=== PATIENT | female | born 1965 | race African-American/Black ===

== ENCOUNTER 2016-08-20 09:20 | Inpatient (IN) | payer MEDICAID, OTHER ==
[~2016-08-20] VITALS: Ht 160 cm; Wt 108.9 kg
[~2016-08-20 09:20] MED LIST: ARIP30TA3 PO; BENZ2TAB7 PO; ESCI10TA PO; ESCI20TA PO; SUCR1ORA PO; TOPA200 PO
[2016-08-20] MEDS ORDERED: SODIUM CHLORIDE 0.9% 1,000 ML IV ONE (09:40)
[2016-08-20] MEDS ORDERED: MORPHINE SULFATE 4 MG/ML CPJ (NOT FOR IM USE) IV STA (09:40)
[2016-08-20] MEDS ORDERED: ONDANSETRON HCL 4MG/2ML VIAL IV STA (09:40)
[2016-08-20] MEDS ORDERED: HYDRALAZINE 20MG/ML VIAL IV ONE (09:45)
[2016-08-20 10:00] LABS: BASOPHILS % 1.2 % (0.0-2.0); EOSINOPHILS % 1.1 % (0.0-5.0); HEMATOCRIT. 40.1 % (36.0-48.0); HEMOGLOBIN. 13.5 g/dL (12.0-16.0); LYMPHOCYTES % 34.5 % (20.0-50.0); MEAN CORPUSCULAR HEMOGLOBIN 28.9 pg (28.0-32.0); MEAN CORPUSCULAR VOLUME 85.6 fL (81.0-99.0); MEAN PLATELET VOLUME 10.7 fl (7.4-10.4); MONOCYTES % 4.6 % (2.0-8.0); NEUTROPHILS % 58.6 % (40.0-76.0); PLATELET 234 x1000/uL (130-400); RED BLOOD CELL COUNT 4.68 mill/uL (4.2-5.4); RED CELL DISTRIBUTION WIDTH 15.3 % (11.6-14.6)
[2016-08-20 10:16] LABS: CARBON DIOXIDE 25 mEq/L (21-32); CHLORIDE 113 mEq/L (98-107); TROPONIN I < 0.02 ng/mL (0.00-0.04)
[2016-08-20] MEDS ORDERED: ASPIRIN 325MG EC TABLET PO ONE (10:30)
[2016-08-20] MEDS ORDERED: ACETAMINOPHEN 650MG/20.3ML UDC GT PRN (11:30)
[2016-08-20] MEDS ORDERED: DOCUSATE SODIUM 100MG CAPSULE PO PRN (11:30)
[2016-08-20] MEDS ORDERED: NA PHOS,M-B/NA PHOS,DI-BA ENEMA 118ML PR PRN (11:30)
[2016-08-20] MEDS ORDERED: DIPHENHYDRAMINE 50MG/ML VIAL IV PRN (11:30)
[2016-08-20] MEDS ORDERED: HYDROCODONE/ACETAMINOPHEN 5/325MG TABLET PO PRN (11:30)
[2016-08-20] MEDS ORDERED: ONDANSETRON HCL 4MG/2ML VIAL IV PRN (11:30)
[2016-08-20] MEDS ORDERED: GUAIFENESIN 200MG/10ML SUGAR FREE UDC PO PRN (11:30)
[2016-08-20] MEDS ORDERED: CLONIDINE 0.1MG TABLET PO PRN (11:30)
[2016-08-20] MEDS ORDERED: MAGNESIUM/ALUMINUM HYDROXIDE/SIMETHICONE 30ML UDC PO PRN (11:30)
[2016-08-20] MEDS ORDERED: ACETAMINOPHEN 650MG SUPP PR PRN (11:30)
[2016-08-20] MEDS ORDERED: IPRATROPIUM/ALBUTEROL 0.5-3(2.5)MG/3ML NEB INH PRN (11:30)
[2016-08-20 11:53] LABS: CLARITY URINE CLEAR (CLEAR); COLOR URINE YELLOW (YELLOW); GLUCOSE URINE NEGATIVE (NEGATIVE); KETONES URINE NEGATIVE (NEGATIVE); LEUKOCYTE ESTERASE URINE NEGATIVE (NEGATIVE); NITRITE URINE NEGATIVE (NEGATIVE); OCCULT BLOOD URINE 1+ (NEGATIVE); PROTEIN URINE NEGATIVE (NEGATIVE); SPECIFIC GRAVITY URINE 1.013 (1.005-1.030); UROBILINOGEN URINE 0.2 E.U./dL (0.2-1.0)
[2016-08-20 12:39] LABS: *AMPHETAMINES SCREEN URINE NEGATIVE (NEGATIVE); *BARBITURATES SCREEN URINE NEGATIVE (NEGATIVE); *BENZODIAZEPINES SCREEN URINE NEGATIVE (NEGATIVE); *COCAINE SCREEN URINE PRESUMTIVE POSITIVE (NEGATIVE); CANNABINOID URINE SCREEN NEGATIVE (NEGATIVE); METHADONE URINE SCREEN NEGATIVE (NEGATIVE); OPIATES URINE SCREEN NEGATIVE (NEGATIVE); PHENCYCLIDINE URINE SCREEN NEGATIVE (NEGATIVE)
[2016-08-20 12:55] VITALS: BP 141/67
[2016-08-20 16:02] LABS: CREATINE KINASE 215 IU/L (26-192); TROPONIN I < 0.02 ng/mL (0.00-0.04)
[2016-08-20 17:24] VITALS: BP 126/61
[2016-08-20] MEDS: SODIUM CHLORIDE 0.9% INJ 3ML FLUSH IVF SCH ×2 (17:48→21:14)
[2016-08-20] MEDS: ACETAMINOPHEN 325MG TABLET PO PRN (17:49)
[2016-08-20 20:00] VITALS: BP 118/58
[2016-08-20 23:13] LABS: CREATINE KINASE 204 IU/L (26-192); TROPONIN I < 0.02 ng/mL (0.00-0.04)
[2016-08-21] VITALS: BP 119/58
[2016-08-21 04:00] VITALS: BP 115/64
[2016-08-21] MEDS: SODIUM CHLORIDE 0.9% INJ 3ML FLUSH IVF SCH ×3 (06:19→22:35)
[2016-08-21 06:53] LABS: BASOPHILS % 0.5 % (0.0-2.0); EOSINOPHILS % 1.9 % (0.0-5.0); HEMATOCRIT. 39.3 % (36.0-48.0); HEMOGLOBIN. 13.1 g/dL (12.0-16.0); LYMPHOCYTES % 46.3 % (20.0-50.0); MEAN CORPUSCULAR HEMOGLOBIN 28.9 pg (28.0-32.0); MEAN CORPUSCULAR VOLUME 86.5 fL (81.0-99.0); MEAN PLATELET VOLUME 11.2 fl (7.4-10.4); NEUTROPHILS % 46.3 % (40.0-76.0); PLATELET 222 x1000/uL (130-400); RED BLOOD CELL COUNT 4.54 mill/uL (4.2-5.4); RED CELL DISTRIBUTION WIDTH 14.8 % (11.6-14.6)
[2016-08-21 08:00] VITALS: BP 140/78
[2016-08-21] MEDS: ACETAMINOPHEN 325MG TABLET PO PRN ×2 (08:51→19:29)
[2016-08-21] MEDS ORDERED: ESCI20TA36 PO (11:43)
[2016-08-21] MEDS ORDERED: NON FORMULARY PATIENT HOME MED EA XX SCH (11:45)
[2016-08-21] MEDS ORDERED: MEDICATION NOT ON FORMULARY EA (Escitalopram Oxalate 1 TAB) PO SCH (11:45)
[2016-08-21 12:00] VITALS: BP 119/65
[2016-08-21] MEDS: ASPIRIN 81MG TABLET PO SCH (13:10)
[2016-08-21] MEDS: AMLODIPINE 10MG TABLET PO SCH (13:11)
[2016-08-21] MEDS: CITALOPRAM HYDROBROMIDE 40MG TABLET PO SCH (13:11)
[2016-08-21 16:00] VITALS: BP 143/68
[2016-08-21 16:29] LABS: CREATINE KINASE 173 IU/L (26-192); CREATINE KINASE MB FRACTION 1.1 ng/mL (0.5-3.6); TROPONIN I < 0.02 ng/mL (0.00-0.04)
[2016-08-21 16:36] LABS: T4 FREE 0.91 ng/dL (0.76-1.46)
[2016-08-21 20:42] VITALS: BP 150/69
[2016-08-21 23:20] LABS: CREATINE KINASE 170 IU/L (26-192); CREATINE KINASE MB FRACTION 1.9 ng/mL (0.5-3.6); TROPONIN I < 0.02 ng/mL (0.00-0.04)
[2016-08-22 00:29] VITALS: BP 137/79
[2016-08-22 04:00] VITALS: BP 132/69
[2016-08-22] MEDS: SODIUM CHLORIDE 0.9% INJ 3ML FLUSH IVF SCH (05:41)
[2016-08-22 06:11] LABS: CREATINE KINASE 156 IU/L (26-192); CREATINE KINASE MB FRACTION 1.3 ng/mL (0.5-3.6); TROPONIN I < 0.02 ng/mL (0.00-0.04)
[2016-08-22 08:00] VITALS: BP_SYST 115; BP_SYST 133; BP_DIAS 47; BP_DIAS 82
[2016-08-22] MEDS: CITALOPRAM HYDROBROMIDE 40MG TABLET PO SCH (08:18)
[2016-08-22] MEDS: AMLODIPINE 10MG TABLET PO SCH (08:18)
[2016-08-22] MEDS: ASPIRIN 81MG TABLET PO SCH (08:18)
[2016-08-22 10:23] VITALS: BP 115/47
[2016-08-22 12:00] VITALS: BP 110/51
== END 2016-08-22 12:10 | disposition home or self-care (01) | DRG 47 ==
LOC: ER 09:53 → 5WST 11:02
PROVIDERS: ADMIT Family Medicine; ATTEND Family Medicine
DX: G45.9 Transient cerebral ischemic attack, unspecified (principal); Z68.41 Body mass index [BMI] 40.0-44.9, adult; I11.9 Hypertensive heart disease without heart failure; E66.9 Obesity, unspecified; F14.90 Cocaine use, unspecified, uncomplicated; F31.9 Bipolar disorder, unspecified; J45.909 Unspecified asthma, uncomplicated; K21.9 Gastro-esophageal reflux disease without esophagitis; G93.2 Benign intracranial hypertension; Z98.2 Presence of cerebrospinal fluid drainage device; Z88.0 Allergy status to penicillin
CPT/HCPCS: 36415; 70450; 70551; 71010; 72125; 80053; 80061; 80305; 81001; 82550; 82553; 82962; 83036; 83880; 84439; 84443; 84484; 85025; 85379; 93005; 93306; 96374; 96375; 99285; J0360; J2270; J2405; J7030

== ENCOUNTER 2016-10-06 09:26 | Emergency (ER) | payer OTHER ==
[~2016-10-06] VITALS: Ht 160 cm; Wt 106.0 kg
[~2016-10-06 09:26] MED LIST changes: +ARIP30TA2 PO; -ARIP30TA3 PO; -ESCI10TA PO; +ESCI20TA36 PO
[2016-10-06] MEDS ORDERED: ONDANSETRON HCL 4MG/2ML VIAL IV STA ×2 (10:17→12:52)
[2016-10-06] MEDS ORDERED: MORPHINE SULFATE 4 MG/ML CPJ (NOT FOR IM USE) IV STA ×2 (10:17→12:52)
[2016-10-06] MEDS ORDERED: SODIUM CHLORIDE 0.9% 1,000 ML IV ONE (10:17)
[2016-10-06 10:37] LABS: EOSINOPHILS % 0.6 % (0.0-5.0); HEMATOCRIT. 41.7 % (36.0-48.0); HEMOGLOBIN. 14.3 g/dL (12.0-16.0); LYMPHOCYTES % 38.9 % (20.0-50.0); MEAN CORPUSCULAR HEMOGLOBIN 30.1 pg (28.0-32.0); MEAN CORPUSCULAR VOLUME 87.6 fL (81.0-99.0); MEAN PLATELET VOLUME 10.4 fl (7.4-10.4); MONOCYTES % 5.2 % (2.0-8.0); NEUTROPHILS % 54.3 % (40.0-76.0); PLATELET 204 x1000/uL (130-400); RED BLOOD CELL COUNT 4.77 mill/uL (4.2-5.4); RED CELL DISTRIBUTION WIDTH 14.8 % (11.6-14.6)
[2016-10-06 10:44] LABS: CHLORIDE 108 mEq/L (98-107)
[2016-10-06 10:53] LABS: CARBON DIOXIDE 25 mEq/L (21-32)
[2016-10-06 11:27] LABS: CLARITY URINE CLEAR (CLEAR); COLOR URINE YELLOW (YELLOW); GLUCOSE URINE NEGATIVE (NEGATIVE); KETONES URINE NEGATIVE (NEGATIVE); LEUKOCYTE ESTERASE URINE NEGATIVE (NEGATIVE); NITRITE URINE NEGATIVE (NEGATIVE); OCCULT BLOOD URINE 2+ (NEGATIVE); PH URINE 6.5 (4.5-8.0); PROTEIN URINE NEGATIVE (NEGATIVE); SPECIFIC GRAVITY URINE 1.013 (1.005-1.030); UROBILINOGEN URINE 0.2 E.U./dL (0.2-1.0)
[2016-10-06 13:10] VITALS: BP 190/79
== END 2016-10-06 14:00 | disposition home or self-care (01) ==
LOC: ER 09:27
DX: A08.4 Viral intestinal infection, unspecified (principal); J45.909 Unspecified asthma, uncomplicated; F12.10 Cannabis abuse, uncomplicated; Z72.0 Tobacco use; Z88.0 Allergy status to penicillin
CPT/HCPCS: 36415; 80053; 81001; 83690; 85025; 96361; 96374; 96375; 96376; 99284; J2270; J2405; J7030; Z7610

== ENCOUNTER 2017-03-23 19:17 | Emergency (ER) | payer BC, MEDICAID ==
[~2017-03-23] VITALS: Ht 160 cm; Wt 97.0 kg
[2017-03-23 20:12] VITALS: BP 129/67
== END 2017-03-23 20:18 | disposition left against medical advice (07) ==
LOC: ER 19:17
DX: R10.9 Unspecified abdominal pain (principal); Z53.21 Procedure and treatment not carried out due to patient leaving prior to being seen by health care provider

== ENCOUNTER 2017-10-28 10:07 | Emergency (ER) | payer BC, MEDICAID ==
[~2017-10-28] VITALS: Ht 160 cm; Wt 95.0 kg
[2017-10-28] MEDS ORDERED: ACETAMINOPHEN 500MG TABLET PO ONE (13:15)
[2017-10-28] MEDS ORDERED: IBUPROFEN 400MG TABLET PO ONE (13:15)
[2017-10-28 15:00] VITALS: BP 145/75
[2017-10-28] MEDS ORDERED: METRONIDAZOLE 500MG TABLET PO ONE (15:00)
== END 2017-10-28 15:59 | disposition home or self-care (01) ==
LOC: ER 10:07
DX: S89.81XA Other specified injuries of right lower leg, initial encounter (principal); S49.81XA Other specified injuries of right shoulder and upper arm, initial encounter; Y93.01 Activity, walking, marching and hiking; W17.89XA Other fall from one level to another, initial encounter; Y92.480 Sidewalk as the place of occurrence of the external cause; M17.11 Unilateral primary osteoarthritis, right knee
CPT/HCPCS: 73030; 73562; 99284

== ENCOUNTER 2018-04-20 15:10 | Inpatient (IN) | payer MEDICAID ==
[~2018-04-20] VITALS: Ht 160 cm; Wt 99.8 kg
[2018-04-20] MEDS ORDERED: ALBUTEROL (0.083%) 2.5MG/3ML NEB HHN STA (16:16)
[2018-04-20] MEDS ORDERED: IPRATROPIUM BROMIDE (0.02%) 0.5MG/2.5ML NEB HHN STA (16:16)
[2018-04-20] MEDS ORDERED: ASPIRIN 325MG EC TABLET PO ONE (16:30)
[2018-04-20 17:19] LABS: CHLORIDE 109 mEq/L (98-107)
[2018-04-20 17:49] LABS: BASOPHILS % 1.2 % (0.0-2.0); EOSINOPHILS % 1.1 % (0.0-5.0); HEMATOCRIT. 42.2 % (36.0-48.0); HEMOGLOBIN. 14.1 g/dL (12.0-16.0); LYMPHOCYTES % 30.4 % (20.0-50.0); MEAN CORPUSCULAR HEMOGLOBIN 29.7 pg (28.0-32.0); MEAN CORPUSCULAR VOLUME 89.1 fL (81.0-99.0); MEAN PLATELET VOLUME 10.6 fl (7.4-10.4); MONOCYTES % 6.8 % (2.0-8.0); NEUTROPHILS % 60.5 % (40.0-76.0); PLATELET 241 x1000/uL (130-400); RED BLOOD CELL COUNT 4.74 mill/uL (4.2-5.4); RED CELL DISTRIBUTION WIDTH 14.2 % (11.6-14.6)
[2018-04-20] MEDS ORDERED: DOCUSATE SODIUM 100MG CAPSULE PO PRN (19:30)
[2018-04-20] MEDS ORDERED: ONDANSETRON HCL 4MG/2ML INJ IV PRN (19:30)
[2018-04-20] MEDS ORDERED: ACETAMINOPHEN 325MG TABLET PO PRN (19:30)
[2018-04-20] MEDS: LORAZEPAM 0.5MG TABLET PO PRN (19:56)
[2018-04-20] MEDS: CLONIDINE 0.1MG TABLET PO PRN (19:56)
[2018-04-20 20:06] LABS: CREATINE KINASE MB FRACTION < 1.0 ng/mL (0.5-3.6)
[2018-04-20 20:33] LABS: CREATINE KINASE 199 IU/L (26-192)
[2018-04-20] MEDS: IPRATROPIUM/ALBUTEROL 0.5-3(2.5)MG/3ML NEB INH PRN (20:41)
[2018-04-20] MEDS ORDERED: IOHEXOL-350 100 ML BOTTLE ONE (20:41)
[2018-04-20] MEDS: BENZONATATE 100MG CAPSULE PO PRN (21:41)
[2018-04-21] VITALS (8 sets, daily range): BP systolic 128–158; BP diastolic 59–81
[2018-04-21] MEDS: HYDROCODONE/ACETAMINOPHEN 5/325MG TABLET PO PRN ×4 (01:07→22:33)
[2018-04-21] MEDS: IPRATROPIUM/ALBUTEROL 0.5-3(2.5)MG/3ML NEB INH PRN ×5 (02:00→20:52)
[2018-04-21] MEDS: LORAZEPAM 0.5MG TABLET PO PRN ×2 (05:35→10:36)
[2018-04-21] MEDS: BENZONATATE 100MG CAPSULE PO PRN (06:17)
[2018-04-21 06:55] LABS: BASOPHILS % 0.9 % (0.0-2.0); EOSINOPHILS % 1.1 % (0.0-5.0); LYMPHOCYTES % 38.4 % (20.0-50.0); MEAN CORPUSCULAR HEMOGLOBIN 29.5 pg (28.0-32.0); MEAN CORPUSCULAR VOLUME 88.8 fL (81.0-99.0); MEAN PLATELET VOLUME 11.3 fl (7.4-10.4); MONOCYTES % 13.5 % (2.0-8.0); NEUTROPHILS % 46.1 % (40.0-76.0); PLATELET 212 x1000/uL (130-400); RED BLOOD CELL COUNT 4.39 mill/uL (4.2-5.4); RED CELL DISTRIBUTION WIDTH 14.5 % (11.6-14.6)
[2018-04-21 07:15] LABS: CHLORIDE 110 mEq/L (98-107)
[2018-04-21 07:23] LABS: LDL CHOLESTEROL 83 mg/dL (5-100)
[2018-04-21 07:29] LABS: HDL CHOLESTEROL 56 mg/dL (40-59)
[2018-04-21] MEDS: ASPIRIN 81MG EC TABLET PO SCH (10:00)
[2018-04-21] MEDS: GUAIFENESIN-DM 200MG-20MG/10ML UDC PO PRN ×3 (12:25→22:33)
[2018-04-21] MEDS: METHYLPREDNISOLONE SOD SUCC 125 MG/2 ML VIAL IV SCH ×2 (15:54→21:11)
[2018-04-21] MEDS ORDERED: LEVOFLOXACIN 750MG PREMIX 150 ML IV SCH (16:30)
[2018-04-21] MEDS: MONTELUKAST SODIUM 10MG TABLET PO SCH (17:51)
[2018-04-21] MEDS: LEVOFLOXACIN 750MG PREMIX 150 ML IV SCH (17:51)
[2018-04-21] MEDS: FAMOTIDINE 20MG TABLET PO SCH (21:11)
[2018-04-21] MEDS: TOPIRAMATE 100MG TABLET PO SCH (21:12)
[2018-04-21] MEDS: BENZTROPINE MESYLATE 1MG TABLET PO SCH (21:12)
[2018-04-21] MEDS ORDERED: POTASSIUM CHLORIDE 20MEQ TABLET SR PO NR (23:00)
[2018-04-22] VITALS: BP 151/71
[2018-04-22 04:00] VITALS: BP 152/78
[2018-04-22] MEDS: METHYLPREDNISOLONE SOD SUCC 125 MG/2 ML VIAL IV SCH (06:26)
[2018-04-22 07:11] LABS: BASOPHILS % 0.2 % (0.0-2.0); CHLORIDE 110 mEq/L (98-107); HEMATOCRIT. 42.8 % (36.0-48.0); HEMOGLOBIN. 14.1 g/dL (12.0-16.0); LYMPHOCYTES % 14.5 % (20.0-50.0); MEAN CORPUSCULAR HEMOGLOBIN 29.5 pg (28.0-32.0); MEAN CORPUSCULAR VOLUME 89.3 fL (81.0-99.0); MONOCYTES % 1.4 % (2.0-8.0); NEUTROPHILS % 83.9 % (40.0-76.0); PLATELET 244 x1000/uL (130-400)
[2018-04-22] MEDS: IPRATROPIUM/ALBUTEROL 0.5-3(2.5)MG/3ML NEB INH PRN ×2 (07:57→13:17)
[2018-04-22 08:00] VITALS: BP 141/57
[2018-04-22] MEDS ORDERED: MEDICATION NOT ON FORMULARY EA (Escitalopram Oxalate 1 TAB) PO SCH (09:00)
[2018-04-22] MEDS: CITALOPRAM HYDROBROMIDE 20MG TABLET PO SCH (09:12)
[2018-04-22] MEDS: ARIPIPRAZOLE 10MG TABLET PO SCH (09:12)
[2018-04-22] MEDS: FAMOTIDINE 20MG TABLET PO SCH ×2 (09:13→21:24)
[2018-04-22] MEDS: TOPIRAMATE 100MG TABLET PO SCH ×2 (09:13→21:24)
[2018-04-22] MEDS: LORATADINE 10MG TABLET PO SCH (09:13)
[2018-04-22] MEDS: ASPIRIN 81MG EC TABLET PO SCH (09:13)
[2018-04-22] MEDS: LORAZEPAM 0.5MG TABLET PO PRN (09:22)
[2018-04-22] MEDS: HYDROCODONE/ACETAMINOPHEN 5/325MG TABLET PO PRN ×2 (09:25→21:48)
[2018-04-22 11:50] VITALS: BP 158/74
[2018-04-22] MEDS ORDERED: BENZONATATE 100MG CAPSULE PO PRN (13:15)
[2018-04-22] MEDS: METHYLPREDNISOLONE SOD SUCC 40 MG/ML VIAL IV SCH ×2 (14:46→21:24)
[2018-04-22] MEDS: IPRATROPIUM/ALBUTEROL 0.5-3(2.5)MG/3ML NEB HHN SCH ×3 (15:28→23:55)
[2018-04-22 16:05] VITALS: BP 131/70
[2018-04-22] MEDS: MONTELUKAST SODIUM 10MG TABLET PO SCH (17:29)
[2018-04-22] MEDS: LEVOFLOXACIN 750MG PREMIX 150 ML IV SCH (17:30)
[2018-04-22 18:27] LABS: CLARITY URINE CLEAR (CLEAR); COLOR URINE YELLOW (YELLOW); KETONES URINE NEGATIVE (NEGATIVE); LEUKOCYTE ESTERASE URINE NEGATIVE (NEGATIVE); NITRITE URINE NEGATIVE (NEGATIVE); OCCULT BLOOD URINE 1+ (NEGATIVE); PROTEIN URINE TRACE (NEGATIVE); SPECIFIC GRAVITY URINE 1.015 (1.005-1.030); UROBILINOGEN URINE 0.2 E.U./dL (0.2-1.0)
[2018-04-22 18:35] LABS: *AMPHETAMINES SCREEN URINE NEGATIVE (NEGATIVE); *BARBITURATES SCREEN URINE NEGATIVE (NEGATIVE); *BENZODIAZEPINES SCREEN URINE NEGATIVE (NEGATIVE); *COCAINE SCREEN URINE NEGATIVE (NEGATIVE); CANNABINOID URINE SCREEN NEGATIVE (NEGATIVE); METHADONE URINE SCREEN NEGATIVE (NEGATIVE)
[2018-04-22 18:36] LABS: OPIATES URINE SCREEN PRESUMTIVE POSITIVE (NEGATIVE); PHENCYCLIDINE URINE SCREEN NEGATIVE (NEGATIVE)
[2018-04-22 20:00] VITALS: BP 178/73
[2018-04-22] MEDS: BENZTROPINE MESYLATE 1MG TABLET PO SCH (21:24)
[2018-04-22] MEDS: GUAIFENESIN/CODEINE 100-10MG/5ML UDC PO PRN (21:47)
[2018-04-22] MEDS: CLONIDINE 0.1MG TABLET PO PRN (21:47)
[2018-04-23] VITALS (7 sets, daily range): BP systolic 121–160; BP diastolic 60–85
[2018-04-23] MEDS: IPRATROPIUM/ALBUTEROL 0.5-3(2.5)MG/3ML NEB HHN SCH ×6 (03:50→23:56)
[2018-04-23] MEDS: METHYLPREDNISOLONE SOD SUCC 40 MG/ML VIAL IV SCH (05:32)
[2018-04-23] MEDS: TOPIRAMATE 100MG TABLET PO SCH ×2 (08:42→23:02)
[2018-04-23] MEDS: ARIPIPRAZOLE 10MG TABLET PO SCH (08:42)
[2018-04-23] MEDS: LORATADINE 10MG TABLET PO SCH (08:42)
[2018-04-23] MEDS: FAMOTIDINE 20MG TABLET PO SCH ×2 (08:42→23:02)
[2018-04-23] MEDS: ASPIRIN 81MG EC TABLET PO SCH (08:42)
[2018-04-23] MEDS: CITALOPRAM HYDROBROMIDE 20MG TABLET PO SCH (08:47)
[2018-04-23 09:18] LABS: BASOPHILS % 0.2 % (0.0-2.0); HEMATOCRIT. 40.4 % (36.0-48.0); HEMOGLOBIN. 13.4 g/dL (12.0-16.0); LYMPHOCYTES % 7.7 % (20.0-50.0); MEAN CORPUSCULAR HEMOGLOBIN 29.4 pg (28.0-32.0); MEAN CORPUSCULAR VOLUME 89.1 fL (81.0-99.0); MEAN PLATELET VOLUME 10.9 fl (7.4-10.4); MONOCYTES % 2.3 % (2.0-8.0); NEUTROPHILS % 89.8 % (40.0-76.0); PLATELET 256 x1000/uL (130-400); RED BLOOD CELL COUNT 4.54 mill/uL (4.2-5.4); RED CELL DISTRIBUTION WIDTH 14.5 % (11.6-14.6)
[2018-04-23 10:30] LABS: CHLORIDE 110 mEq/L (98-107)
[2018-04-23] MEDS: PREDNISONE 20MG TABLET PO SCH (16:04)
[2018-04-23] MEDS: MONTELUKAST SODIUM 10MG TABLET PO SCH (16:04)
[2018-04-23] MEDS: LEVOFLOXACIN 750MG PREMIX 150 ML IV SCH (16:04)
[2018-04-23] MEDS: BENZONATATE 100MG CAPSULE PO PRN (17:55)
[2018-04-23] MEDS: HYDROCODONE/ACETAMINOPHEN 5/325MG TABLET PO PRN (17:59)
[2018-04-23] MEDS: GUAIFENESIN/CODEINE 100-10MG/5ML UDC PO PRN (20:40)
[2018-04-23] MEDS: BENZTROPINE MESYLATE 1MG TABLET PO SCH (23:02)
[2018-04-24] MEDS: IPRATROPIUM/ALBUTEROL 0.5-3(2.5)MG/3ML NEB HHN SCH ×4 (03:52→15:17)
[2018-04-24 03:55] VITALS: BP 145/70
[2018-04-24 07:01] LABS: BASOPHILS % 0.5 % (0.0-2.0); HEMATOCRIT. 40.4 % (36.0-48.0); HEMOGLOBIN. 13.3 g/dL (12.0-16.0); LYMPHOCYTES % 13.4 % (20.0-50.0); MEAN CORPUSCULAR HEMOGLOBIN 29.5 pg (28.0-32.0); MEAN CORPUSCULAR VOLUME 89.3 fL (81.0-99.0); MEAN PLATELET VOLUME 11.2 fl (7.4-10.4); MONOCYTES % 4.4 % (2.0-8.0); NEUTROPHILS % 81.7 % (40.0-76.0); PLATELET 257 x1000/uL (130-400); RED BLOOD CELL COUNT 4.53 mill/uL (4.2-5.4); RED CELL DISTRIBUTION WIDTH 14.5 % (11.6-14.6)
[2018-04-24 08:00] VITALS: BP 175/78
[2018-04-24] MEDS: PREDNISONE 20MG TABLET PO SCH (08:11)
[2018-04-24] MEDS: TOPIRAMATE 100MG TABLET PO SCH (08:11)
[2018-04-24] MEDS: CITALOPRAM HYDROBROMIDE 20MG TABLET PO SCH (08:11)
[2018-04-24] MEDS: BENZONATATE 100MG CAPSULE PO PRN (08:11)
[2018-04-24] MEDS: LORATADINE 10MG TABLET PO SCH (08:12)
[2018-04-24] MEDS: ARIPIPRAZOLE 10MG TABLET PO SCH (08:12)
[2018-04-24] MEDS: FAMOTIDINE 20MG TABLET PO SCH (08:12)
[2018-04-24] MEDS: CLONIDINE 0.1MG TABLET PO PRN (08:12)
[2018-04-24] MEDS: ASPIRIN 81MG EC TABLET PO SCH (08:12)
[2018-04-24 09:00] VITALS: BP 156/69
[2018-04-24 12:00] VITALS: BP 138/64
[2018-04-24] MEDS: GUAIFENESIN/CODEINE 100-10MG/5ML UDC PO PRN (12:28)
[2018-04-24 12:34] LABS: CHLORIDE 111 mEq/L (98-107)
[2018-04-24] MEDS ORDERED: LEVO750T46 MT (15:43)
[2018-04-24] MEDS ORDERED: CLAR10 PO (15:43)
[2018-04-24] MEDS ORDERED: P50 MT (15:43)
[2018-04-24] MEDS ORDERED: FAMO20TA8 PO (15:43)
[2018-04-24] MEDS ORDERED: PRED10TA MT (15:43)
[2018-04-24] MEDS ORDERED: P20 MT ×2 (15:43)
[2018-04-24] MEDS ORDERED: MONT10TA21 PO (15:43)
[2018-04-24] MEDS ORDERED: ASPI-1158 PO (15:43)
[2018-04-24] MEDS ORDERED: TUSSL MT (15:43)
[2018-04-24] MEDS ORDERED: PROT40 MT (15:48)
[2018-04-24 16:00] VITALS: BP 146/82
[2018-04-24] MEDS ORDERED: GUAIFENESIN/CODEINE 100-10MG/5ML UDC PO PRN (17:15)
[2018-04-24 17:17] VITALS: BP 146/82
[2018-04-25] MEDS ORDERED: PREDNISONE 20MG TABLET PO SCH (09:00)
== END 2018-04-24 19:07 | disposition home or self-care (01) | DRG 139 ==
LOC: ER 15:10 → 6WST 18:08 → ENRESERV 21:44
PROVIDERS: ADMIT Internal Medicine; ATTEND Internal Medicine
DX: J18.9 Pneumonia, unspecified organism (principal); J96.00 Acute respiratory failure, unspecified whether with hypoxia or hypercapnia; J45.901 Unspecified asthma with (acute) exacerbation; I16.1 Hypertensive emergency; J20.9 Acute bronchitis, unspecified; F19.10 Other psychoactive substance abuse, uncomplicated; E66.9 Obesity, unspecified; G93.2 Benign intracranial hypertension; F31.9 Bipolar disorder, unspecified; I10 Essential (primary) hypertension; D72.821 Monocytosis (symptomatic); F14.90 Cocaine use, unspecified, uncomplicated; Z86.73 Personal history of transient ischemic attack (TIA), and cerebral infarction without residual deficits; Z87.891 Personal history of nicotine dependence; Z68.39 Body mass index [BMI] 39.0-39.9, adult; Z98.2 Presence of cerebrospinal fluid drainage device; Z82.49 Family history of ischemic heart disease and other diseases of the circulatory system; Z88.0 Allergy status to penicillin; Z79.899 Other long term (current) drug therapy; R07.9 Chest pain, unspecified
CPT/HCPCS: 36415; 71045; 71275; 80048; 80061; 80305; 82550; 82553; 82962; 83036; 83735; 83880; 84100; 84443; 84484; 85379; 87804; 93005; 94640; 99285; J1956; J2920; J2930; J7050; J7512; J7611; J7620; Q9967

== ENCOUNTER 2019-08-25 15:19 | Emergency (ER) | payer MEDICAID ==
[~2019-08-25] VITALS: Ht 160 cm; Wt 94.0 kg
[~2019-08-25 15:19] MED LIST changes: +ASPI-1158 PO; +CLAR10 PO; -ESCI20TA PO; -ESCI20TA36 PO; +ESCI20TA43 PO; +FAMO20TA8 PO; +LEVO750T46 MT; +MONT10TA21 PO; +P20 MT; +P50 MT; +PRED10TA MT; +PROT40 MT; +TUSSL MT
[2019-08-25] MEDS ORDERED: KETOROLAC 60MG/2ML VIAL IM ONE (17:00)
[2019-08-25 18:21] VITALS: BP 190/93
== END 2019-08-25 18:23 | disposition home or self-care (01) ==
LOC: ER 15:19
DX: M25.561 Pain in right knee (principal); M19.90 Unspecified osteoarthritis, unspecified site; J45.909 Unspecified asthma, uncomplicated; Z98.890 Other specified postprocedural states; Z79.899 Other long term (current) drug therapy; Z88.0 Allergy status to penicillin
CPT/HCPCS: 73560; 96372; 99283; J1885

== ENCOUNTER 2020-01-02 18:39 | Emergency (ER) | payer MEDICAID, OTHER ==
[~2020-01-02] VITALS: Ht 160 cm; Wt 86.0 kg
[2020-01-02] MEDS ORDERED: SODIUM CHLORIDE 0.9% 1,000 ML IV ONE (19:00)
[2020-01-02 20:24] LABS: BASOPHILS % 0.4 % (0.0-2.0); EOSINOPHILS % 0.5 % (0.0-5.0); HEMATOCRIT. 40.8 % (36.0-48.0); HEMOGLOBIN. 13.9 g/dL (12.0-16.0); LYMPHOCYTES % 30.9 % (20.0-50.0); MEAN CORPUSCULAR HEMOGLOBIN 31.8 pg (28.0-32.0); MEAN CORPUSCULAR VOLUME 93.2 fL (81.0-99.0); MEAN PLATELET VOLUME 11.6 fl (7.4-10.4); MONOCYTES % 3.7 % (2.0-8.0); NEUTROPHILS % 64.5 % (40.0-76.0); PLATELET 191 x1000/uL (130-400); RED BLOOD CELL COUNT 4.38 mill/uL (4.2-5.4); RED CELL DISTRIBUTION WIDTH 13.7 % (11.6-14.6)
[2020-01-02 20:29] LABS: CHLORIDE 110 mEq/L (98-107)
[2020-01-02 20:33] LABS: CLARITY URINE CLEAR (CLEAR); COLOR URINE YELLOW (YELLOW); KETONES URINE NEGATIVE (NEGATIVE); LEUKOCYTE ESTERASE URINE NEGATIVE (NEGATIVE); NITRITE URINE NEGATIVE (NEGATIVE); OCCULT BLOOD URINE 1+ (NEGATIVE); PROTEIN URINE NEGATIVE (NEGATIVE); SPECIFIC GRAVITY URINE 1.016 (1.005-1.030); UROBILINOGEN URINE 0.2 E.U./dL (0.2-1.0)
[2020-01-02 20:45] LABS: *AMPHETAMINES SCREEN URINE NEGATIVE (NEGATIVE); *BARBITURATES SCREEN URINE NEGATIVE (NEGATIVE); *BENZODIAZEPINES SCREEN URINE NEGATIVE (NEGATIVE); *COCAINE SCREEN URINE NEGATIVE (NEGATIVE)
[2020-01-02 20:46] LABS: CANNABINOID URINE SCREEN NEGATIVE (NEGATIVE); METHADONE URINE SCREEN NEGATIVE (NEGATIVE); OPIATES URINE SCREEN NEGATIVE (NEGATIVE); PHENCYCLIDINE URINE SCREEN NEGATIVE (NEGATIVE)
[2020-01-02] MEDS ORDERED: CEFTRIAXONE SODIUM 250 MG/VIAL IM SCH (21:15)
[2020-01-02] MEDS ORDERED: LIDOCAINE HCL 1% 20ML VIAL (Pyxis) INJ INFIL SCH (21:15)
[2020-01-02] MEDS ORDERED: AZITHROMYCIN 500 MG TABLET PO SCH (21:15)
[2020-01-02] MEDS ORDERED: POTASSIUM CHLORIDE 20MEQ TABLET SR PO ONE (21:45)
[2020-01-02 22:00] VITALS: BP 152/68
== END 2020-01-02 22:04 | disposition home or self-care (01) ==
LOC: ER 18:39
DX: Z20.2 Contact with and (suspected) exposure to infections with a predominantly sexual mode of transmission (principal); E87.6 Hypokalemia; R74.01 Elevation of levels of liver transaminase levels; R73.9 Hyperglycemia, unspecified; J45.909 Unspecified asthma, uncomplicated; F17.200 Nicotine dependence, unspecified, uncomplicated; Z98.890 Other specified postprocedural states
CPT/HCPCS: 36415; 80053; 80305; 81003; 83690; 85025; 87591; 93005; 96360; 96372; 99284; J0696; J3490; J7030

== ENCOUNTER 2020-02-23 11:31 | Emergency (ER) | payer OTHER ==
[~2020-02-23] VITALS: Ht 160 cm; Wt 85.0 kg
[2020-02-23 11:38] VITALS: BP 154/58
[2020-02-23] MEDS ORDERED: ALBUTEROL (0.083%) 2.5MG/3ML NEB HHN STA (11:41)
[2020-02-23] MEDS ORDERED: PREDNISONE 20MG TABLET PO STA (11:41)
[2020-02-23 12:29] LABS: BASOPHILS % 1.3 % (0.0-2.0); HEMATOCRIT. 42.2 % (36.0-48.0); HEMOGLOBIN. 14.2 g/dL (12.0-16.0); LYMPHOCYTES % 34.3 % (20.0-50.0); MEAN CORPUSCULAR HEMOGLOBIN 30.6 pg (28.0-32.0); MEAN CORPUSCULAR VOLUME 90.6 fL (81.0-99.0); NEUTROPHILS % 59.4 % (40.0-76.0); PLATELET 237 x1000/uL (130-400); RED BLOOD CELL COUNT 4.66 mill/uL (4.2-5.4); RED CELL DISTRIBUTION WIDTH 13.7 % (11.6-14.6)
[2020-02-23 12:34] LABS: CHLORIDE 111 mEq/L (98-107)
== END 2020-02-23 15:29 | disposition home or self-care (01) ==
LOC: ER 11:36
DX: J45.901 Unspecified asthma with (acute) exacerbation (principal); Z79.899 Other long term (current) drug therapy; Z88.0 Allergy status to penicillin
CPT/HCPCS: 36415; 71045; 80053; 85025; 93005; 94640; 99285; J7512; Z7610

== ENCOUNTER 2021-04-14 17:31 | Emergency (ER) | payer OTHER ==
[~2021-04-14] VITALS: Ht 160 cm; Wt 90.0 kg
[~2021-04-14 17:31] MED LIST changes: -ASPI-1158 PO; +ASPI-1406 PO; +ESCI20TA37 PO; -ESCI20TA43 PO
[2021-04-14] MEDS ORDERED: MORPHINE SULFATE 4 MG/ML CPJ (NOT FOR IM USE) IV ONE (18:30)
[2021-04-14] MEDS ORDERED: ONDANSETRON HCL 4MG/2ML INJ IV ONE (18:30)
[2021-04-14 20:18] LABS: BASOPHILS % 0.9 % (0.0-2.0); EOSINOPHILS % 1.2 % (0.0-5.0); HEMATOCRIT. 40.8 % (36.0-48.0); HEMOGLOBIN. 13.7 g/dL (12.0-16.0); LYMPHOCYTES % 41.2 % (20.0-50.0); MEAN CORPUSCULAR HEMOGLOBIN 29.8 pg (28.0-32.0); MEAN CORPUSCULAR VOLUME 88.4 fL (81.0-99.0); MEAN PLATELET VOLUME 11.6 fl (7.4-10.4); MONOCYTES % 4.7 % (2.0-8.0); PLATELET 228 x1000/uL (130-400); RED BLOOD CELL COUNT 4.61 mill/uL (4.2-5.4); RED CELL DISTRIBUTION WIDTH 13.5 % (11.6-14.6)
[2021-04-14 20:23] LABS: CHLORIDE 114 mEq/L (98-107)
[2021-04-14 20:29] LABS: ETHANOL BLOOD < 10 mg/dL
[2021-04-14] MEDS ORDERED: ACET-2708 MT (21:46)
[2021-04-14] MEDS ORDERED: BACL-141 MT (21:46)
[2021-04-14 22:12] VITALS: BP 161/71
== END 2021-04-14 22:15 | disposition home or self-care (01) ==
LOC: ER 17:38
DX: M54.2 Cervicalgia (principal); M54.10 Radiculopathy, site unspecified; M79.602 Pain in left arm; F17.210 Nicotine dependence, cigarettes, uncomplicated; I10 Essential (primary) hypertension; J45.909 Unspecified asthma, uncomplicated; Z88.0 Allergy status to penicillin; Z79.82 Long term (current) use of aspirin
CPT/HCPCS: 36415; 70450; 71045; 72125; 80053; 80320; 83690; 83880; 84484; 85025; 93005; 93971; 96374; 96375; 99285; J2270; J2405; G0480

== ENCOUNTER 2022-04-15 13:09 | Emergency (ER) | payer MEDICAID, OTHER ==
[~2022-04-15] VITALS: Ht 160 cm; Wt 91.0 kg
[~2022-04-15 13:09] MED LIST changes: +ACET-2708 MT; +BACL-141 MT; -LEVO750T46 MT; +LEVO750T68 MT
[2022-04-15 15:38] LABS: CLARITY URINE CLEAR (CLEAR); COLOR URINE YELLOW (YELLOW); KETONES URINE NEGATIVE (NEGATIVE); LEUKOCYTE ESTERASE URINE 2+ (NEGATIVE); NITRITE URINE NEGATIVE (NEGATIVE); OCCULT BLOOD URINE 1+ (NEGATIVE); PH URINE 5.5 (4.5-8.0); PROTEIN URINE NEGATIVE (NEGATIVE); SPECIFIC GRAVITY URINE 1.016 (1.005-1.030); UROBILINOGEN URINE 0.2 E.U./dL (0.2-1.0)
[2022-04-15] MEDS ORDERED: ACETAMINOPHEN 500MG TABLET PO ONE (16:00)
[2022-04-15 16:08] LABS: BASOPHILS % 1.2 % (0.0-2.0); EOSINOPHILS % 0.9 % (0.0-5.0); HEMATOCRIT. 42.3 % (36.0-48.0); HEMOGLOBIN. 14.2 g/dL (12.0-16.0); LYMPHOCYTES % 47.6 % (20.0-50.0); MEAN CORPUSCULAR HEMOGLOBIN 30.2 pg (28.0-32.0); MEAN CORPUSCULAR VOLUME 89.7 fL (81.0-99.0); MEAN PLATELET VOLUME 10.1 fl (7.4-10.4); MONOCYTES % 4.4 % (2.0-8.0); NEUTROPHILS % 45.9 % (40.0-76.0); PLATELET 291 x1000/uL (130-400); RED BLOOD CELL COUNT 4.71 mill/uL (4.2-5.4); RED CELL DISTRIBUTION WIDTH 13.9 % (11.6-14.6)
[2022-04-15 16:18] LABS: CHLORIDE 108 mEq/L (98-107)
[2022-04-15 16:20] LABS: PROTHROMBIN TIME 10.8 sec (9.6-11.0)
[2022-04-15 16:21] LABS: HCG SCREEN NEGATIVE
[2022-04-15] MEDS ORDERED: CIPR-263 MT (17:44)
[2022-04-15 20:24] VITALS: BP 133/68
== END 2022-04-15 20:32 | disposition home or self-care (01) ==
LOC: ER 13:57
DX: N39.0 Urinary tract infection, site not specified (principal); R51.9 Headache, unspecified; J45.909 Unspecified asthma, uncomplicated; Z88.0 Allergy status to penicillin; Z79.899 Other long term (current) drug therapy; Z98.890 Other specified postprocedural states
CPT/HCPCS: 36415; 74176; 80053; 81003; 84703; 85025; 99284

== ENCOUNTER 2022-05-02 15:56 | Inpatient (IN) | payer MEDICAID ==
[~2022-05-02] VITALS: Ht 160 cm; Wt 102.1 kg
[~2022-05-02 15:56] MED LIST changes: +CIPR-263 MT
[2022-05-02] MEDS ORDERED: AZTREONAM 1 G in DEXTROSE 5% WATER 50 ML IV SCH (20:45)
[2022-05-02] MEDS ORDERED: METOCLOPRAMIDE HCL 10MG/2ML VIAL IV ONE (23:15)
[2022-05-02] MEDS ORDERED: MORPHINE SULFATE 4 MG/ML CPJ (NOT FOR IM USE) IV ONE (23:15)
[2022-05-02] MEDS ORDERED: HYDRALAZINE 20MG/ML VIAL IV ONE (23:15)
[2022-05-03 00:06] LABS: MEAN PLATELET VOLUME 10.6 fl (7.4-10.4)
[2022-05-03 00:12] LABS: PROTHROMBIN TIME 10.4 sec (9.6-11.0)
[2022-05-03 00:13] LABS: CHLORIDE 107 mEq/L (98-107)
[2022-05-03 00:19] LABS: BASOPHILS % 1.4 % (0.0-2.0); EOSINOPHILS % 0.5 % (0.0-5.0); HEMATOCRIT. 36.3 % (36.0-48.0); HEMOGLOBIN. 12.3 g/dL (12.0-16.0); MEAN CORPUSCULAR HEMOGLOBIN 30.8 pg (28.0-32.0); MEAN CORPUSCULAR VOLUME 90.8 fL (81.0-99.0); NEUTROPHILS % 65.1 % (40.0-76.0); PLATELET 232 x1000/uL (130-400); RED CELL DISTRIBUTION WIDTH 13.9 % (11.6-14.6)
[2022-05-03 00:23] LABS: ETHANOL BLOOD < 10 mg/dL
[2022-05-03 02:54] VITALS: BP 148/55
[2022-05-03] MEDS ORDERED: LISI40TA13 PO (03:17)
[2022-05-03] MEDS ORDERED: AMLO10TA80 PO (03:17)
[2022-05-03] MEDS ORDERED: BUPR200T2 PO (03:17)
[2022-05-03] MEDS ORDERED: HYDR12.54 PO (03:17)
[2022-05-03 03:55] VITALS: BP 148/55
[2022-05-03] MEDS: HYDROCODONE/ACETAMINOPHEN 5/325MG TABLET PO PRN ×3 (04:32→15:49)
[2022-05-03] MEDS ORDERED: PIPERACILLIN/TAZOBACTAM 3.375 G in DEXTROSE 5% WATER 50 ML IV SCH (06:00)
[2022-05-03] MEDS ORDERED: VANCOMYCIN 1500MG in DEXTROSE 5% WATER 250ML IV NR ×2 (06:00→08:00)
[2022-05-03 06:39] LABS: BASOPHILS % 1.6 % (0.0-2.0); EOSINOPHILS % 0.8 % (0.0-5.0); HEMATOCRIT. 37.2 % (36.0-48.0); HEMOGLOBIN. 12.6 g/dL (12.0-16.0); LYMPHOCYTES % 24.3 % (20.0-50.0); MEAN CORPUSCULAR HEMOGLOBIN 30.9 pg (28.0-32.0); MEAN CORPUSCULAR VOLUME 91.2 fL (81.0-99.0); MEAN PLATELET VOLUME 10.6 fl (7.4-10.4); MONOCYTES % 6.7 % (2.0-8.0); NEUTROPHILS % 66.6 % (40.0-76.0); PLATELET 225 x1000/uL (130-400); RED BLOOD CELL COUNT 4.07 mill/uL (4.2-5.4); RED CELL DISTRIBUTION WIDTH 14.1 % (11.6-14.6)
[2022-05-03 08:00] VITALS: BP 154/59
[2022-05-03 08:05] LABS: CHLORIDE 109 mEq/L (98-107)
[2022-05-03] MEDS: LISINOPRIL 40MG TABLET PO SCH (08:43)
[2022-05-03] MEDS: HYDRALAZINE HCL 25MG TABLET PO SCH ×2 (08:43→17:25)
[2022-05-03] MEDS: AMLODIPINE 10MG TABLET PO SCH (08:43)
[2022-05-03] MEDS: BUPROPION HCL 150MG SR TABLET PO SCH (08:49)
[2022-05-03 12:00] VITALS: BP 146/53
[2022-05-03 16:00] VITALS: BP 139/57
[2022-05-03] MEDS ORDERED: NALOXONE HCL 0.4MG/ML VIAL IV PRN (18:30)
[2022-05-03 20:00] VITALS: BP 136/58
[2022-05-03] MEDS ORDERED: LEVOFLOXACIN 750MG PREMIX 150 ML IV SCH (20:00)
[2022-05-03] MEDS ORDERED: INFLUENZA VACCINE 05/PF 0.5 ML SYRINGE IM ONE (21:00)
[2022-05-03] MEDS: VANCOMYCIN 750MG PREMIX 150 ML IV SCH (21:37)
[2022-05-03] MEDS: CEFTRIAXONE 2 G in DEXTROSE 5% WATER 50 ML IV SCH (22:28)
[2022-05-04] VITALS: BP 138/57
[2022-05-04 04:00] VITALS: BP_SYST 138; BP_SYST 144; BP_DIAS 57; BP_DIAS 70
[2022-05-04 08:00] VITALS: BP 152/65
[2022-05-04] MEDS: VANCOMYCIN 750MG PREMIX 150 ML IV SCH ×2 (08:47→20:55)
[2022-05-04] MEDS: HYDRALAZINE HCL 25MG TABLET PO SCH ×2 (08:48→17:44)
[2022-05-04] MEDS: BUPROPION HCL 150MG SR TABLET PO SCH (08:48)
[2022-05-04] MEDS: LISINOPRIL 40MG TABLET PO SCH (08:48)
[2022-05-04] MEDS: AMLODIPINE 10MG TABLET PO SCH (08:48)
[2022-05-04] MEDS: HYDROCODONE/ACETAMINOPHEN 5/325MG TABLET PO PRN ×2 (08:49→12:54)
[2022-05-04 12:00] VITALS: BP_SYST 144; BP_SYST 163; BP_DIAS 66; BP_DIAS 77
[2022-05-04] MEDS ORDERED: LIDOCAINE HCL 1% 30ML VIAL (10MG/ML) ONE (13:08)
[2022-05-04] MEDS: KETOROLAC 15MG/ML VIAL IV PRN ×2 (14:36→20:58)
[2022-05-04 16:00] VITALS: BP 121/78
[2022-05-04 17:21] LABS: CREATINE KINASE 87 IU/L (26-192)
[2022-05-04 20:00] VITALS: BP 123/55
[2022-05-04] MEDS: CEFTRIAXONE 2 G in DEXTROSE 5% WATER 50 ML IV SCH (20:55)
[2022-05-05] VITALS: BP 137/62
[2022-05-05 04:00] VITALS: BP 146/51
[2022-05-05 07:05] LABS: CHLORIDE 110 mEq/L (98-107)
[2022-05-05 08:00] VITALS: BP 157/60
[2022-05-05] MEDS: LISINOPRIL 40MG TABLET PO SCH (08:38)
[2022-05-05] MEDS: BUPROPION HCL 150MG SR TABLET PO SCH (08:38)
[2022-05-05] MEDS: AMLODIPINE 10MG TABLET PO SCH (08:38)
[2022-05-05] MEDS: HYDRALAZINE HCL 25MG TABLET PO SCH ×2 (08:38→18:05)
[2022-05-05] MEDS: VANCOMYCIN 750MG PREMIX 150 ML IV SCH (08:39)
[2022-05-05] MEDS: HYDROCODONE/ACETAMINOPHEN 5/325MG TABLET PO PRN ×3 (10:32→22:09)
[2022-05-05] MEDS: KETOROLAC 15MG/ML VIAL IV PRN ×2 (11:11→18:06)
[2022-05-05 12:00] VITALS: BP 144/63
[2022-05-05 16:00] VITALS: BP 154/76
[2022-05-05] MEDS: VANCOMYCIN 1.25GM PMX (XELLIA) 250 ML IV SCH (18:05)
[2022-05-05 20:00] VITALS: BP 124/67
[2022-05-05] MEDS: CEFTRIAXONE 2 G in DEXTROSE 5% WATER 50 ML IV SCH (21:10)
[2022-05-06] VITALS: BP 131/42
[2022-05-06] MEDS: KETOROLAC 15MG/ML VIAL IV PRN ×3 (00:24→21:32)
[2022-05-06 04:00] VITALS: BP 142/55
[2022-05-06] MEDS: VANCOMYCIN 1.25GM PMX (XELLIA) 250 ML IV SCH ×2 (05:55→17:46)
[2022-05-06] MEDS: HYDROCODONE/ACETAMINOPHEN 5/325MG TABLET PO PRN ×2 (06:04→18:01)
[2022-05-06 08:00] VITALS: BP 150/69
[2022-05-06] MEDS: HYDRALAZINE HCL 25MG TABLET PO SCH ×2 (09:25→17:46)
[2022-05-06] MEDS: LISINOPRIL 40MG TABLET PO SCH (09:25)
[2022-05-06] MEDS: AMLODIPINE 10MG TABLET PO SCH (09:26)
[2022-05-06] MEDS: BUPROPION HCL 150MG TABLET XL 24HR PO SCH (10:41)
[2022-05-06 12:25] VITALS: BP 140/70
[2022-05-06 16:00] VITALS: BP 156/74
[2022-05-06 20:00] VITALS: BP 160/68
[2022-05-06] MEDS: CEFTRIAXONE 2 G in DEXTROSE 5% WATER 50 ML IV SCH (21:31)
[2022-05-07] VITALS: BP 86/45
[2022-05-07 04:00] VITALS: BP 135/50
[2022-05-07 04:24] LABS: BASOPHILS % 0.9 % (0.0-2.0); EOSINOPHILS % 1.8 % (0.0-5.0); HEMATOCRIT. 39.7 % (36.0-48.0); HEMOGLOBIN. 13.1 g/dL (12.0-16.0); LYMPHOCYTES % 32.9 % (20.0-50.0); MEAN CORPUSCULAR HEMOGLOBIN 30.1 pg (28.0-32.0); MEAN PLATELET VOLUME 10.2 fl (7.4-10.4); MONOCYTES % 6.1 % (2.0-8.0); NEUTROPHILS % 58.3 % (40.0-76.0); PLATELET 245 x1000/uL (130-400); RED BLOOD CELL COUNT 4.36 mill/uL (4.2-5.4); RED CELL DISTRIBUTION WIDTH 13.6 % (11.6-14.6)
[2022-05-07 04:32] LABS: CHLORIDE 109 mEq/L (98-107)
[2022-05-07 04:42] LABS: VANCOMYCIN TROUGH 12.4 ug/mL (5.0-10.0)
[2022-05-07] MEDS: VANCOMYCIN 1.25GM PMX (XELLIA) 250 ML IV SCH ×2 (06:38→17:29)
[2022-05-07 08:00] VITALS: BP 141/73
[2022-05-07] MEDS: BUPROPION HCL 150MG TABLET XL 24HR PO SCH (08:43)
[2022-05-07] MEDS: HYDRALAZINE HCL 25MG TABLET PO SCH ×3 (08:43→17:32)
[2022-05-07] MEDS: KETOROLAC 15MG/ML VIAL IV PRN ×2 (08:43→20:33)
[2022-05-07] MEDS: LISINOPRIL 40MG TABLET PO SCH (08:44)
[2022-05-07] MEDS: AMLODIPINE 10MG TABLET PO SCH (08:44)
[2022-05-07] MEDS ORDERED: CLONIDINE 0.1MG TABLET PO PRN (11:45)
[2022-05-07 12:00] VITALS: BP 175/71
[2022-05-07] MEDS: HYDROCODONE/ACETAMINOPHEN 5/325MG TABLET PO PRN ×3 (13:30→22:43)
[2022-05-07 16:00] VITALS: BP 109/51
[2022-05-07 20:00] VITALS: BP 138/58
[2022-05-07] MEDS: CEFTRIAXONE 2 G in DEXTROSE 5% WATER 50 ML IV SCH (20:33)
[2022-05-08] VITALS: BP 131/59
[2022-05-08 04:00] VITALS: BP 147/60
[2022-05-08] MEDS: VANCOMYCIN 1.25GM PMX (XELLIA) 250 ML IV SCH ×2 (05:23→17:54)
[2022-05-08 08:00] VITALS: BP 153/56
[2022-05-08] MEDS: BUPROPION HCL 150MG TABLET XL 24HR PO SCH (09:37)
[2022-05-08] MEDS: AMLODIPINE 10MG TABLET PO SCH (09:37)
[2022-05-08] MEDS: HYDRALAZINE HCL 25MG TABLET PO SCH ×2 (09:37→17:54)
[2022-05-08] MEDS: LISINOPRIL 40MG TABLET PO SCH (09:38)
[2022-05-08 12:13] VITALS: BP 145/52
[2022-05-08] MEDS: KETOROLAC 15MG/ML VIAL IV PRN (15:56)
[2022-05-08 16:00] VITALS: BP 148/76
[2022-05-08] MEDS ORDERED: HYDROCODONE/ACETAMINOPHEN 5/325MG TABLET PO PRN (17:40)
[2022-05-08 20:00] VITALS: BP 131/72
[2022-05-08] MEDS ORDERED: NALOXONE HCL 0.4MG/ML VIAL IV PRN (20:00)
[2022-05-08] MEDS: CEFTRIAXONE 2 G in DEXTROSE 5% WATER 50 ML IV SCH (20:28)
[2022-05-09] VITALS: BP 133/64
[2022-05-09 04:00] VITALS: BP 139/50
[2022-05-09] MEDS: VANCOMYCIN 1.25GM PMX (XELLIA) 250 ML IV SCH (06:22)
[2022-05-09 07:05] LABS: EOSINOPHILS % 1.9 % (0.0-5.0); HEMATOCRIT. 39.3 % (36.0-48.0); HEMOGLOBIN. 13.3 g/dL (12.0-16.0); LYMPHOCYTES % 29.9 % (20.0-50.0); MEAN CORPUSCULAR HEMOGLOBIN 30.8 pg (28.0-32.0); MEAN CORPUSCULAR VOLUME 90.9 fL (81.0-99.0); MEAN PLATELET VOLUME 10.3 fl (7.4-10.4); MONOCYTES % 7.1 % (2.0-8.0); NEUTROPHILS % 60.1 % (40.0-76.0); PLATELET 256 x1000/uL (130-400); RED BLOOD CELL COUNT 4.33 mill/uL (4.2-5.4); RED CELL DISTRIBUTION WIDTH 13.5 % (11.6-14.6)
[2022-05-09 07:41] LABS: CHLORIDE 108 mEq/L (98-107)
[2022-05-09 08:00] VITALS: BP 146/53
[2022-05-09] MEDS: LISINOPRIL 40MG TABLET PO SCH (08:41)
[2022-05-09] MEDS: HYDRALAZINE HCL 25MG TABLET PO SCH (08:42)
[2022-05-09] MEDS: AMLODIPINE 10MG TABLET PO SCH (08:42)
[2022-05-09] MEDS: BUPROPION HCL 150MG TABLET XL 24HR PO SCH ×2 (08:43→08:52)
[2022-05-09] MEDS: KETOROLAC 15MG/ML VIAL IV PRN (10:16)
[2022-05-09 12:00] VITALS: BP 150/70
[2022-05-09 12:10] VITALS: BP 146/53
[2022-05-09] MEDS ORDERED: HYDR-4009 MT (13:23)
[2022-05-09] MEDS ORDERED: HYDR-4134 MT (13:55)
[2022-05-09 16:00] VITALS: BP 151/74
== END 2022-05-09 16:40 | disposition home health service (06) | DRG 383 ==
LOC: ER 15:56 → MICUSO 23:09 → 8WST 05-03 02:32 → 7WST 05-05 15:37 → 6EST 05-06 13:56
PROVIDERS: ADMIT Internal Medicine; ATTEND Internal Medicine
PROC: 02HV33Z Insertion of Infusion Device into Superior Vena Cava, Percutaneous Approach (ICD-10-PCS; principal; 2022-05-04)
PROC: B5181ZA Fluoroscopy of Superior Vena Cava using Low Osmolar Contrast, Guidance (ICD-10-PCS; 2022-05-04)
PROC: B548ZZA Ultrasonography of Superior Vena Cava, Guidance (ICD-10-PCS; 2022-05-04)
DX: L03.221 Cellulitis of neck (principal); E66.01 Morbid (severe) obesity due to excess calories; I10 Essential (primary) hypertension; Z20.822 Contact with and (suspected) exposure to COVID-19; J45.909 Unspecified asthma, uncomplicated; R13.10 Dysphagia, unspecified; Z68.39 Body mass index [BMI] 39.0-39.9, adult; Z88.0 Allergy status to penicillin; Z98.2 Presence of cerebrospinal fluid drainage device; Z88.8 Allergy status to other drugs, medicaments and biological substances
CPT/HCPCS: 36415; 36573; 70250; 70490; 71045; 71046; 74018; 80048; 80053; 80202; 80320; 82550; 82962; 85025; 87426; 90686; 99285; A6261; C1725; C1760; J0360; J0696; J1885; J1956; J2270; J2765; J3370; J3490; J7060; G0480

== ENCOUNTER 2022-07-01 21:02 | Inpatient (IN) | payer MEDICAID ==
[~2022-07-01] VITALS: Ht 160 cm; Wt 103.0 kg
[~2022-07-01 21:02] MED LIST changes: +AMLO10TA80 PO; +BUPR200T2 PO; -CIPR-263 MT; +HYDR-4009 MT; +HYDR-4134 MT; +HYDR12.54 PO; -LEVO750T68 MT; +LISI40TA13 PO; +MONT-46 PO; -MONT10TA21 PO
[2022-07-01 23:41] LABS: EOSINOPHILS % 0.5 % (0.0-5.0); HEMATOCRIT. 39.1 % (36.0-48.0); HEMOGLOBIN. 13.4 g/dL (12.0-16.0); MEAN CORPUSCULAR HEMOGLOBIN 29.7 pg (28.0-32.0); MEAN CORPUSCULAR VOLUME 86.8 fL (81.0-99.0); MEAN PLATELET VOLUME 10.5 fl (7.4-10.4); MONOCYTES % 8.4 % (2.0-8.0); NEUTROPHILS % 69.1 % (40.0-76.0); PLATELET 247 x1000/uL (130-400); RED CELL DISTRIBUTION WIDTH 14.4 % (11.6-14.6)
[2022-07-01 23:48] LABS: PROTHROMBIN TIME 10.9 sec (9.6-11.0)
[2022-07-01 23:59] LABS: CHLORIDE 107 mEq/L (98-107)
[2022-07-02] MEDS ORDERED: LEVOFLOXACIN 500MG PREMIX 100 ML IV ONE (02:45)
[2022-07-02 02:50] LABS: CLARITY URINE CLEAR (CLEAR); COLOR URINE YELLOW (YELLOW); KETONES URINE NEGATIVE (NEGATIVE); LEUKOCYTE ESTERASE URINE 1+ (NEGATIVE); NITRITE URINE NEGATIVE (NEGATIVE); OCCULT BLOOD URINE 1+ (NEGATIVE); PH URINE 7.5 (4.5-8.0); PROTEIN URINE NEGATIVE (NEGATIVE); UROBILINOGEN URINE 0.2 E.U./dL (0.2-1.0)
[2022-07-02 09:50] VITALS: BP 131/61
[2022-07-02 10:08] VITALS: BP 131/61
[2022-07-02] MEDS ORDERED: ONDANSETRON HCL 4MG/2ML INJ IV PRN (10:45)
[2022-07-02 12:00] VITALS: BP 149/53
[2022-07-02] MEDS ORDERED: VANCOMYCIN 1.25GM PMX (XELLIA) 250 ML IV SCH (12:00)
[2022-07-02] MEDS: KETOROLAC 15MG/ML VIAL IV PRN ×2 (14:10→20:51)
[2022-07-02 16:00] VITALS: BP 147/71
[2022-07-02] MEDS: GUAIFENESIN-DM 200MG-20MG/10ML UDC PO PRN (16:50)
[2022-07-02 20:00] VITALS: BP 175/83
[2022-07-02] MEDS: HYDRALAZINE HCL 25MG TABLET PO SCH (20:18)
[2022-07-02] MEDS ORDERED: CLONIDINE 0.1MG TABLET PO PRN (20:45)
[2022-07-02] MEDS ORDERED: IPRATROPIUM/ALBUTEROL 0.5-3(2.5)MG/3ML NEB HHN PRN (20:45)
[2022-07-03] VITALS: BP 116/47
[2022-07-03] MEDS: VANCOMYCIN 1.25GM PMX (XELLIA) 250 ML IV SCH ×2 (00:01→08:55)
[2022-07-03 04:00] VITALS: BP 129/65
[2022-07-03] MEDS: GUAIFENESIN-DM 200MG-20MG/10ML UDC PO PRN ×3 (05:46→15:28)
[2022-07-03] MEDS: KETOROLAC 15MG/ML VIAL IV PRN (05:48)
[2022-07-03] MEDS ORDERED: LEVOFLOXACIN 500MG PREMIX 100 ML IV SCH (06:00)
[2022-07-03 07:10] LABS: BASOPHILS % 0.6 % (0.0-2.0); EOSINOPHILS % 0.7 % (0.0-5.0); HEMATOCRIT. 35.1 % (36.0-48.0); LYMPHOCYTES % 35.5 % (20.0-50.0); MEAN CORPUSCULAR HEMOGLOBIN 30.1 pg (28.0-32.0); MEAN CORPUSCULAR VOLUME 87.8 fL (81.0-99.0); MEAN PLATELET VOLUME 10.8 fl (7.4-10.4); MONOCYTES % 8.1 % (2.0-8.0); NEUTROPHILS % 55.1 % (40.0-76.0); PLATELET 209 x1000/uL (130-400); RED CELL DISTRIBUTION WIDTH 14.3 % (11.6-14.6)
[2022-07-03 07:27] LABS: CHLORIDE 111 mEq/L (98-107)
[2022-07-03 08:00] VITALS: BP 137/56
[2022-07-03] MEDS: HYDRALAZINE HCL 25MG TABLET PO SCH (08:58)
[2022-07-03] MEDS ORDERED: BUPROPION HCL 150MG SR TABLET PO SCH ×2 (09:00)
[2022-07-03] MEDS ORDERED: LISINOPRIL 40MG TABLET PO SCH (09:00)
[2022-07-03] MEDS ORDERED: LEVOTHYROXINE SODIUM 100MCG TABLET PO SCH (09:00)
[2022-07-03 12:00] VITALS: BP 119/52
[2022-07-03 15:07] VITALS: BP 119/52
[2022-07-03 16:00] VITALS: BP 139/70
== END 2022-07-03 16:45 | disposition home or self-care (01) | DRG 113 ==
LOC: ER 21:02 → 6EST 07-02 02:43 → EDBEDREQ 07-02 02:48 → ENRESERV 07-02 08:12
DX: J06.9 Acute upper respiratory infection, unspecified (principal); L03.221 Cellulitis of neck; E03.9 Hypothyroidism, unspecified; Z20.822 Contact with and (suspected) exposure to COVID-19; E66.9 Obesity, unspecified; J45.909 Unspecified asthma, uncomplicated; I10 Essential (primary) hypertension; Z88.0 Allergy status to penicillin; Z98.2 Presence of cerebrospinal fluid drainage device; Z68.41 Body mass index [BMI] 40.0-44.9, adult
CPT/HCPCS: 36415; 70490; 71045; 72040; 74022; 74176; 80048; 80053; 81003; 83605; 84145; 85025; 87426; 87804; 94640; 99285; J1885; J1956; J3370

== ENCOUNTER 2023-03-03 09:59 | Emergency (ER) | payer MEDICAID, OTHER ==
[~2023-03-03] VITALS: Ht 170.2 cm; Wt 113.0 kg
[~2023-03-03 09:59] MED LIST changes: +BENZ2TAB65 PO; -BENZ2TAB7 PO
[2023-03-03 10:09] VITALS: BP 132/74
[2023-03-03] MEDS ORDERED: ACETAMINOPHEN 325MG TABLET PO ONE (11:00)
[2023-03-03] MEDS ORDERED: PREDNISONE 20MG TABLET PO ONE (11:00)
[2023-03-03] MEDS ORDERED: ALBUTEROL (0.083%) 2.5MG/3ML NEB HHN ONE (11:00)
[2023-03-03] MEDS ORDERED: IPRATROPIUM/ALBUTEROL 0.5-3(2.5)MG/3ML NEB HHN ONE (11:00)
[2023-03-03 12:10] VITALS: PULSE 70; RESP 24; O2SAT 99
[2023-03-03] MEDS ORDERED: P50 MT (13:01)
[2023-03-03] MEDS ORDERED: ALBU2.5V13 NEB (13:01)
[2023-03-03] MEDS ORDERED: ALBU6.7H15 INH (13:01)
[2023-03-03 13:26] VITALS: PULSE 62; RESP 20; TEMP 98
== END 2023-03-03 13:27 | disposition home or self-care (01) ==
LOC: ER 09:59
DX: J45.901 Unspecified asthma with (acute) exacerbation (principal); Z88.0 Allergy status to penicillin; Z98.890 Other specified postprocedural states; Z20.822 Contact with and (suspected) exposure to COVID-19
CPT/HCPCS: 87804 ×2; 71045; 94640; 99284; 87426; J7512; Z7610 ×4; C9803

== ENCOUNTER 2023-06-26 13:50 | Emergency (ER) | payer MEDICAID, OTHER ==
[~2023-06-26] VITALS: Ht 160 cm; Wt 110.7 kg
[~2023-06-26 13:50] MED LIST changes: +ALBU2.5V13 NEB; +ALBU6.7H15 INH; -HYDR-4134 MT; +HYDR25TA78 MT
[2023-06-26 14:06] VITALS: O2SAT 100
[2023-06-26 15:02] LABS: BASOPHILS % 0.7 % (0.0-2.0); EOSINOPHILS % 0.3 % (0.0-5.0); HEMOGLOBIN. 14.4 g/dL (12.0-16.0); LYMPHOCYTES % 30.2 % (20.0-50.0); MEAN CORPUSCULAR HEMOGLOBIN 29.4 pg (28.0-32.0); MEAN CORPUSCULAR HGB CONC 33.6 g/dL (31.0-37.0); MEAN CORPUSCULAR VOLUME 87.5 fL (81.0-99.0); MEAN PLATELET VOLUME 10.2 fl (7.4-10.4); MONOCYTES % 4.1 % (2.0-8.0); NEUTROPHILS % 64.7 % (40.0-76.0); PLATELET 275 x1000/uL (130-400); RED BLOOD CELL COUNT 4.91 mill/uL (4.2-5.4); RED CELL DISTRIBUTION WIDTH 14.6 % (11.6-14.6); WHITE BLOOD COUNT 10.2 x1000/uL (4.5-11.0)
[2023-06-26 15:16] LABS: ALANINE AMINOTRANSFERASE 16 IU/L (10-49); ALBUMIN 4.8 g/dL (3.2-4.8); ASPARTATE AMINOTRANSFERASE 20 IU/L (<34); BILIRUBIN TOTAL 0.3 mg/dL (0.1-1.0); CALCIUM 9.5 mg/dL (8.7-10.4); CARBON DIOXIDE 28 mEq/L (21-32); CHLORIDE 107 mEq/L (98-107); CREATININE 0.7 mg/dL (0.6-1.0); GLUCOSE 89 mg/dL (70-105); POTASSIUM 3.6 mEq/L (3.5-5.1); PROTEIN TOTAL 8.2 g/dL (6.0-8.3); SODIUM 143 mEq/L (136-145); UREA NITROGEN BLOOD 9 mg/dL (9-23)
[2023-06-26] MEDS ORDERED: IOHEXOL-300 100 ML BOTTLE ONE (23:45)
[2023-06-27 00:02] LABS: CLARITY URINE CLEAR (CLEAR); COLOR URINE YELLOW (YELLOW); GLUCOSE URINE NEGATIVE (NEGATIVE); KETONES URINE NEGATIVE (NEGATIVE); LEUKOCYTE ESTERASE URINE NEGATIVE (NEGATIVE); NITRITE URINE NEGATIVE (NEGATIVE); OCCULT BLOOD URINE 1+ (NEGATIVE); PH URINE 5.5 (4.5-8.0); PROTEIN URINE NEGATIVE (NEGATIVE); SPECIFIC GRAVITY URINE 1.053 (1.005-1.030); UROBILINOGEN URINE 0.2 E.U./dL (0.2-1.0)
[2023-06-27] MEDS ORDERED: POLY119P2 MT (00:09)
[2023-06-27 00:26] LABS: BACTERIA URINE NONE SEEN; RBC URINE 0-2 /hpf (0-2); SQUAMOUS EPITHELIAL CELL URINE FEW /lpf (RARE/1+); WBC URINE 0-2 /hpf (0-2)
[2023-06-27 01:07] VITALS: BP 190/57; PULSE 62; RESP 16; TEMP 97.9
== END 2023-06-27 01:36 | disposition home or self-care (01) ==
LOC: ER 14:25
DX: R10.9 Unspecified abdominal pain (principal); K59.00 Constipation, unspecified; J45.909 Unspecified asthma, uncomplicated; Z79.899 Other long term (current) drug therapy
CPT/HCPCS: 99285; 74177; 71045; 80053; 81003; 83690; 85025; 36415; Q9967; 99284